=== PATIENT | female | born 1995 | race Caucasian/White ===

== ENCOUNTER 2022-07-14 17:37 | Outpatient (CLI) | payer BC, SELFPAY ==
[2022-07-16 09:45] LABS: HIV-1/2 Ag & Ab Screen Negative (Negative)
[2022-07-18 10:14] LABS: HBs Antibody, Qual Negative (See Note); HBs Antibody, Quant 4.2 mIU/mL (See Note); Hepatitis B Core Antibody Negative (Negative); Hepatitis B surface Ag Negative (Negative); Hepatitis C Ab w Rflx HCV PCR Negative (Negative)
[2022-07-18 10:48] LABS: Syphilis Serology (RPR) Negative (Negative)
== END 2022-07-14 17:38 | disposition home or self-care (01) ==
LOC: LBO 17:37
PROVIDERS: Visit Provider Obstetrics & Gynecology
DX: Z11.3 Encounter for screening for infections with a predominantly sexual mode of transmission (principal); Z11.59 Encounter for screening for other viral diseases; Z11.4 Encounter for screening for human immunodeficiency virus [HIV]
CPT/HCPCS: 36415; 86704; 86706; 86803; 87340; 87389; 86592

== ENCOUNTER 2023-04-08 16:48 | Outpatient (REF) | payer BC, SELFPAY ==
[2023-04-08 16:57] LABS: Source Nasal/Nares
[2023-04-08 17:47] LABS: COVID-19 PCR Negative (Negative)
== END 2023-04-08 16:49 | disposition home or self-care (01) ==
LOC: LBN 16:48
PROVIDERS: Visit Provider Physician Assistant Medical
DX: J02.9 Acute pharyngitis, unspecified (principal); Z20.822 Contact with and (suspected) exposure to COVID-19
CPT/HCPCS: 87635; 87070

== ENCOUNTER 2024-01-22 16:21 | Outpatient (REF) | payer BC, SELFPAY ==
--- NOTE | 2024-01-22 16:30 | PAPFT_PTH ---
PATIENT: Adelita Guillen LOC: [facility] U#:[id number] AGE/SX: 28/F ROOM: RE01/22/[address]: Destini Farooq MD : [id number] BED: DIS: 01/22/2024 SPEC #: [id number] RECD: 01/22/24 17:30 STATUS: MATTI REQ #: [id number] HADLEY: 01/22/24 16:[address]: Destini Farooq DEPT: [facility] Cytology RECD BY: Socorro Green ENTERED: 01/22/24 17:30 SP TYPE: PAPFT OTHR DR: Unknown,Unknown Tissues: 1 - CX/ENDOCX FOR PAP SMEARS Procedures: PAP THIN PREP/UVM Screening HPV DNA PROBE Comments: [id number] (HPV 16 & 18/45) (CHLAMYDIA/GC)
[2024-01-23 12:18] LABS: Chlamydia Result Negative (Negative); GC Result Negative (Negative)
== END 2024-01-22 16:22 | disposition home or self-care (01) ==
LOC: LBN 16:21
PROVIDERS: Visit Provider Obstetrics & Gynecology
DX: Z11.51 Encounter for screening for human papillomavirus (HPV) (principal); Z01.419 Encounter for gynecological examination (general) (routine) without abnormal findings
CPT/HCPCS: 87491; 87591; 88142; 87624

== ENCOUNTER 2024-07-28 03:02 | Emergency (ER) | payer BC, SELFPAY ==
[2024-07-28 03:08] VITALS: BP 140/64; PULSE 62; RESP 18; TEMP 36.3; O2SAT 98
[2024-07-28] MEDS: Lactated Ringers 1,000 ML 1000 ML IV (03:33)
[2024-07-28] MEDS: Ondansetron 4 MG/2 ML VIAL IVP (03:34)
[2024-07-28] MEDS: Metoclopramide 10 MG/2 ML VIAL IVP (03:34)
[2024-07-28 03:37] LABS: Abs Immature Grans 0.14 10^3/uL (0.0-0.06); Absolute Basophil Count 0.06 10^3/uL (0.0-0.2); Absolute Monocyte Count 1.33 10^3/uL (0.1-0.8); Basophils % 0.3 %; Eosinophils % 0.1 %; HCT 39.8 % (36.0-46.0); HGB 13.3 g/dL (11.2-15.7); Immature Grans % 0.7 %; Lymphocytes % 7.7 %; MCH 27.6 pg (27.0-33.0); MCHC 33.4 % (32.0-36.0); MCV 83 fL (80-95); MPV 9.7 fL (8.0-11.0); Monocytes % 6.9 %; Neutrophils % 84.3 %; Platelet Count 328 10^3/uL (130-400); RBC 4.82 10^6/uL (3.93-5.22); RDW 12.2 % (11.7-14.6); RDW-SD 37.1 fL; WBC 19.23 10^3/uL (4.4-10.8)
[2024-07-28 03:38] LABS: Absolute Eosinophil Count 0.02 10^3/uL (0.0-0.7); Absolute Lymphocyte Count 1.48 10^3/uL (1.2-3.4); Absolute Neutrophil Count 16.21 10^3/uL (1.2-6.7)
[2024-07-28 03:51] LABS: ALT 21 U/L (14-59); AST 20 U/L (15-37); Albumin 3.6 g/dL (3.4-5.0); Alkaline Phosphatase 109 U/L (46-116); Anion Gap 7.2 mmol/L (3-11); BUN 12 mg/dL (7-18); Bilirubin, Total 0.9 mg/dL (0.2-1.0); CO2 28.8 mmol/L (21.0-32.0); Calcium 9.3 mg/dL (8.5-10.1); Chloride 101 mmol/L (98-107); Estimated GFR 78.21 (mL/min/1.73m2); Glucose 162 mg/dL (74-106); Lipase 24 U/L (<78); Potassium 3.7 mmol/L (3.5-5.1); Sodium 137 mmol/L (136-145); Total Protein 7.8 g/dL (6.4-8.2)
[2024-07-28] MEDS: Normal Saline 1,000 ML 1000 ML IV (04:55)
[2024-07-28 04:56] VITALS: BP 112/52; PULSE 42; RESP 16; O2SAT 100
--- NOTE | 2024-07-28 05:03 | W.ED.GENAD ---
Discharge Plan Disposition Patient Disposition: Home Condition: Good Discharge Details Clinical Impression: Nausea & vomiting, Dehydration Primary Care Provider: Unknown,Unknown ED Provider: Win Mo Home Meds and New Rx's Prescriptions: No Action lisdexamfetamine 30 mg capsule 30 mg PO DAILY Patient Comments: 01/22/24- pt reports taking 30 mg and 20 mg together in am. lisdexamfetamine 20 mg capsule 20 mg PO DAILY Patient Comments: 01/22/24- pt reports takes 20 mg and 30 mg capsule together in am. bupropion HCl 150 mg tablet extended release 24 hr 150 mg PO BID paroxetine HCl 40 mg tablet 40 mg PO DAILY magnesium 250 mg tablet 250 mg PO DAILY Digestive Advantage Advanced 10 billion cell capsule PO omega-3 fatty acids 1,000 mg capsule 1,000 mg PO DAILY Patient Comments: 07/14/22- pt unsure of dose Mirena 21 mcg/24 hours (8 yrs) 52 mg intrauterine device 1 device intrauterine ONCE Rx Instructions: as a single dose buspirone 5 mg tablet 15 mg PO DAILY hydroxyzine HCl 25 mg tablet 25 mg PO BID Discharge Instructions Instructions: Dehydration, Adult (DC), Nausea and Vomiting, Adult ED Additional Instructions: At this time you were notably dehydrated, secondary to your vomiting. The vomiting may have come about from chronic marijuana use, a virus, or something that you ate. Please take the Zofran as needed if your nausea returns. Drink plenty of fluids and stay well-hydrated. Stick with a mild bland diet for the next 24 to 48 hours of rice, applesauce, toast or bananas. If you notice any worsening of your symptoms, or any new symptoms such as vomiting, diarrhea, fever, chills, shortness of breath, chest pain, numbness, weakness, or fainting , please return immediately to the emergency department for reevaluation. Please follow up with your primary care provider as soon as possible for reassessment and reevaluation. As always, it was a pleasure participating in your medical care today. HPI General Date/Time Provider Initiated Documentation: 07/28/24 03:10. HPI Narrative: 29-year-old female with a past medical history of anxiety, depression, migraines, daily marijuana use, presents today for evaluation of nausea and vomiting. Patient states that over the last few days she has had mild sinus and facial pressure, has had a very very mild headache, and has been treating this with Afrin and nasal sprays per her recent urgent care visit. However seemingly separate from this at around 6 PM she had sudden onset of notable nausea and subsequent vomiting. She has vomited 20-30 times since then. She admits to mild abdominal achiness in a generalized fashion, she denies any hematemesis or diarrhea. She denies any other sick contacts at home. She denies any changes in her marijuana use. She denies any other complaints at this time. No prior abdominal surgeries. No other complaints. Related Data Home Medications ?Medication ?Instructions ?Recorded ?Confirmed L.acidoph,paracasei,B.animalis 10 cell PO 07/14/22 01/22/24 billion cell capsule (Digestive Advantage Advanced Probiotic) bupropion HCl 150 mg 24 hr tablet, 150 mg PO BID 07/14/22 07/28/24 extended release levonorgestrel 21 mcg/24 hr (up to 1 device intrauterine ONCE 07/14/22 07/28/24 8 years) 52 mg intrauterine device (Mirena) magnesium 250 mg tablet 250 mg PO DAILY 07/14/22 07/28/24 omega-3 fatty acids 1,000 mg 1,000 mg PO DAILY 07/14/22 07/28/24 capsule paroxetine HCl 40 mg tablet 40 mg PO DAILY 07/14/22 07/28/24 buspirone 5 mg tablet 15 mg PO DAILY 01/22/24 07/28/24 hydroxyzine HCl 25 mg tablet 25 mg PO BID 01/22/24 07/28/24 lisdexamfetamine 20 mg capsule 20 mg PO DAILY 01/22/24 07/28/24 lisdexamfetamine 30 mg capsule 30 mg PO DAILY 01/22/24 07/28/24 Allergies Allergy/AdvReac Type Severity Reaction Status Date / Time No Known Allergies Allergy Verified 07/28/24 03:17 General Stated Complaint: Nausea/Vomit/Diar MP: 3 Exam Narrative Exam Narrative: 1.Const: Well-nourished, Well-developed, appearing stated age 2.Eyes: PERRL, no conjunctival injection, and symmetrical lids. 3.ENT: Atraumatic external nose and ears. Notably dry MM. Neck: Symmetric, trachea midline, No thyromegaly. 4.CVS: +S1/S2, Peripheral pulses 2+ and equal in all extremities. Brisk capillary refill in all extremities. 5.RESP: Unlabored respiratory effort. Clear to auscultation bilaterally. No wheezes rales or rhonchi 6.GI: Soft, Nontender/Nondistended, No hepatosplenomegaly. No guarding or rebound. No pain at McBurney's point, negative Arcos sign. 7.MSK: Normocephalic/Atraumatic, Extremities w/o deformity or ttp No cyanosis or clubbing, Normal movement of all extremities 8.Skin: Warm, Dry. No rashes or lesions. 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 Sensation grossly intact, no focal neurologic deficits. 10.Psych: (AAO) x3. Appropriate mood and affect Course Vital Signs Vital signs: Vital Signs Temperature 36.3 C L 07/28/24 03:08 Pulse 62 07/28/24 03:08 Respiratory Rate 18 07/28/24 03:08 Blood Pressure 140/64 07/28/24 03:08 Pulse Oximetry 98 07/28/24 03:08 Temperature 36.3 C L 07/28/24 03:08 Temperature Source Oral 07/28/24 03:08 Pulse 42 L 07/28/24 04:56 Pulse Rhythm Regular 07/28/24 04:56 Respiratory Rate 16 07/28/24 04:56 Respiratory Effort Normal 07/28/24 04:56 Respiratory Depth Normal 07/28/24 04:56 Blood Pressure 112/52 L 07/28/24 04:56 Blood Pressure Mean 72 07/28/24 04:56 Pulse Oximetry 100 07/28/24 04:56 Oxygen Delivery Method Room Air 07/28/24 03:08 Oxygen Flow Rate 0 07/28/24 03:08 Pain Level 0 07/28/24 03:08 Lab/Test Results Lab/Test Results: Laboratory Tests Range/Units 07/28/24 03:26 WBC (4.4-10.8) 10^3/uL 19.23 H RBC (3.93-5.22) 10^6/uL 4.82 Hgb (11.2-15.7) g/dL 13.3 Hct (36.0-46.0) % 39.8 MCV (80-95) fL 83 MCH (27.0-33.0) pg 27.6 MCHC (32.0-36.0) % 33.4 RDW (11.7-14.6) % 12.2 Plt Count (130-400) 10^3/uL 328 MPV (8.0-11.0) fL 9.7 Immature Gran % % 0.7 Neutrophils % % 84.3 Lymphocytes % % 7.7 Monocytes % % 6.9 Eosinophils % % 0.1 Basophils % % 0.3 Nucleated RBC % (0.0-0.3) % 0.0 Absolute Neutrophils (1.2-6.7) 10^3/uL 16.21 H Absolute Lymphocytes (1.2-3.4) 10^3/uL 1.48 Absolute Monocytes (0.1-0.8) 10^3/uL 1.33 H Absolute Eosinophils (0.0-0.7) 10^3/uL 0.02 Absolute Basophils (0.0-0.2) 10^3/uL 0.06 Sodium (136-145) mmol/L 137 Potassium (3.5-5.1) mmol/L 3.7 Chloride (98-107) mmol/L 101 Carbon Dioxide (21.0-32.0) mmol/L 28.8 Anion Gap (3-11) mmol/L 7.2 BUN (7-18) mg/dL 12 Creatinine (0.55-1.02) mg/dL 1.0 Est GFR (CKD-EPI 2020) (mL/min/1.73m2) 78.21 Glucose (74-106) mg/dL 162 H Calcium (8.5-10.1) mg/dL 9.3 Total Bilirubin (0.2-1.0) mg/dL 0.9 AST (15-37) U/L 20 ALT (14-59) U/L 21 Alkaline Phosphatase (46-116) U/L 109 Total Protein (6.4-8.2) g/dL 7.8 Albumin (3.4-5.0) g/dL 3.6 Lipase (<78) U/L 24 POC- Test(urine) Negative Medical Decision Making 29-year-old female with a past medical history of anxiety, depression, migraines, daily marijuana use, presents today for evaluation of nausea and vomiting. Patient states that over the last few days she has had mild sinus and facial pressure, has had a very very mild headache, and has been treating this with Afrin and nasal sprays per her recent urgent care visit. However seemingly separate from this at around 6 PM she had sudden onset of notable nausea and subsequent vomiting. She has vomited 20-30 times since then. She admits to mild abdominal achiness in a generalized fashion, she denies any hematemesis or diarrhea. She denies any other sick contacts at home. She denies any changes in her marijuana use. She denies any other complaints at this time. No prior abdominal surgeries. No other complaints. Exam demonstrates an actively nauseous and vomiting patient, no guarding or rebound for the abdomen, no focal tenderness. No pain at McBurney's point, negative Arcos sign. Symptoms inconsistent with appendicitis or acute cholecystitis. Differential includes gastroenteritis, she does admit to eating a burger earlier today which may have brought about her symptoms. Symptoms also include cyclic vomiting syndrome. Patient appears notably dehydrated will rehydrate/volume resuscitate with IV fluid bolus, give antiemetics of Zofran and Reglan. Will monitor closely and reassess. Symptoms appear inconsistent with DKA, blood sugar is in the 160s. 5 AM Patient has received a liter of fluid, she is now tolerating p.o. well, she has no more vomiting, she feels well and significantly improved. She feels comfortable going home. Pending urinalysis at this time. Lipase is normal, electrolytes are normal, transaminases are normal. Patient does have an elevated white count at 19, suspect this is reactive from the vomiting. She has no fever or tachycardia to suggest sepsis or infection otherwise. Will continue to monitor and hydrate with a second liter. 5:30 AM Patient continues to do well, she has tolerated p.o. trial well. Vital signs stable. Patient feels well and feels comfortable going home. Nausea and vomiting have resolved. Will give a small to go bottle of Zofran for home use. Suspect cyclic vomiting syndrome versus gastroenteritis. She is now well-hydrated, and shows no signs of life-threatening etiology. Patient will be discharged home. Discussed red flags for which to return. I have extensively reviewed the treatment plan and discharge instructions with the patient. I have addressed all patient concerns at this time. The patient was made aware of what symptoms to monitor for that would warrant a return to the emergency department. Discussed the plan with the patient, they demonstrate verbal understanding and agreement with our assessment and plan at this time. The documentation in this chart was dictated using [employer] dictation software. Please excuse any dictation errors. Quality:SDOH Health Related Social Needs: No Data to Display Critical Care Time Critical Care Time Critical Care Time: Yes Total Critical Care Time: 30 Attestation: Upon my evaluation, this patient had a high probability of imminent or life-threatening deterioration, which required my direct attention, intervention, and personal management. I have personally provided 30 minutes of critical care time exclusive of time spent on separately billable procedures. Time includes review of laboratory data, radiology results, discussion with consultants, and monitoring for potential decompensation. Interventions were performed as documented. PFSH All Active Problems (Updated 07/28/24 @ 05:31 by Win Mo DO) Dehydration (Acute) Nausea & vomiting (Acute) Medical History (Updated 07/28/24 @ 05:31 by Win Mo DO) Anxiety Depression Migraines Surgical History (Updated 07/14/22 @ 15:27 by Kari Casper RN) History of third molar tooth extraction Hx of tonsillectomy Family History (Updated 07/14/22 @ 15:28 by Kari Casper RN) Other Hyperlipidemia Hypertension Stroke Social History (Updated 07/14/22 @ 15:44 by Destini Farooq MD) Smoking/Tobacco Use Status: Never Smoking risk assessment performed?: Yes Alcohol Intake: never Drug use: Daily Substance use type: marijuana Household members: friend(s) Do you think of yourself as: bisexual
[2024-07-28 05:06] LABS: Bilirubin Negative (Negative); Blood Small (Negative); Clarity Clear (Clear); Glucose Negative (Negative); Ketones 15 mg/dL (Negative); Leukocyte Esterase Negative (Negative); Nitrite Negative (Negative); Specific Gravity 1.015 (1.005-1.025); Urobilinogen 0.2 mg/dL (Up to 0.2)
[2024-07-28 05:11] LABS: Bacteria Few HPF (Negative); C & S Indicated? No; Casts Negative LPF (Negative); Crystals Negative HPF (Negative); Epithelial Cells Moderate HPF (Negative); Mucus Negative (Negative); WBC 0-2 HPF (0-5)
[2024-07-28 05:44] VITALS: BP 121/51; PULSE 49; RESP 12; TEMP 35.9; O2SAT 98
[2024-07-28] MEDS: Ondansetron O.D.T. 4 MG TABEF, 3 TABS/BTL PO (05:46)
== END 2024-07-28 05:54 | disposition home or self-care (01) ==
PROVIDERS: Emergency Provider Student in an Organized Health Care Education/Training Program
DX: R11.2 Nausea with vomiting, unspecified (principal); E86.0 Dehydration
CPT/HCPCS: 80053; 81025; 83690; 96361; 96374; 96375; 99284; 81003; 81015; 85025; J2405; J2765

== ENCOUNTER 2024-08-09 14:48 | Outpatient (REF) | payer BC, SELFPAY | END 2024-08-09 14:49 | disposition home or self-care (01) | LOC: LBN 14:48 | PROVIDERS: Visit Provider Nurse Practitioner Family | DX: N76.0 Acute vaginitis (principal); B37.9 Candidiasis, unspecified | CPT/HCPCS: 87480; 87510; 87660 ==

== ENCOUNTER 2024-09-11 13:58 | Outpatient (REF) | payer BC, SELFPAY | END 2024-09-11 13:59 | disposition home or self-care (01) | LOC: LBN 13:58 | PROVIDERS: Visit Provider Physician Assistant Medical | DX: R39.15 Urgency of urination (principal) | CPT/HCPCS: 87077; 87086; 87186 ==

== ENCOUNTER 2024-12-02 16:20 | Outpatient (REF) | payer BC, SELFPAY ==
[2024-12-02 17:03] LABS: Glucose Negative (Negative)
[2024-12-02 17:19] LABS: C & S Indicated? Yes
== END 2024-12-02 16:21 | disposition home or self-care (01) ==
LOC: LBN 16:20
PROVIDERS: Visit Provider Nurse Practitioner Family
DX: R39.9 Unspecified symptoms and signs involving the genitourinary system (principal)
CPT/HCPCS: 87077; 81003; 81015; 87086; 87186

== ENCOUNTER 2024-12-03 22:03 | Emergency (ER) | payer BC, SELFPAY ==
[2024-12-03 22:06] VITALS: BP 148/61; PULSE 51; RESP 16; O2SAT 100
[2024-12-03 22:12] VITALS: BP 148/61; PULSE 51; RESP 16; O2SAT 100
[2024-12-03] MEDS: Normal Saline 1,000 ML 1000 ML IV ×2 (22:25→23:44)
[2024-12-03 23:22] LABS: Abs Immature Grans 0.10 10^3/uL (0.0-0.06); HCT 39.5 % (36.0-46.0); HGB 12.5 g/dL (11.2-15.7); Immature Grans % 0.6 %; MCH 25.3 pg (27.0-33.0); MCHC 31.6 % (32.0-36.0); MCV 80 fL (80-95); MPV 9.6 fL (8.0-11.0); Platelet Count 365 10^3/uL (130-400); RBC 4.94 10^6/uL (3.93-5.22); RDW 15.2 % (11.7-14.6); RDW-SD 43.8 fL; WBC 16.31 10^3/uL (4.4-10.8)
[2024-12-03 23:34] LABS: Lipase 199 U/L (<78)
[2024-12-03 23:39] LABS: ALT 18 U/L (14-59); AST 17 U/L (15-37); Albumin 3.6 g/dL (3.4-5.0); Alkaline Phosphatase 105 U/L (46-116); Anion Gap 9.3 mmol/L (3-11); BUN 10 mg/dL (7-18); Bilirubin, Total 0.5 mg/dL (0.2-1.0); CO2 27.7 mmol/L (21.0-32.0); Calcium 8.7 mg/dL (8.5-10.1); Chloride 103 mmol/L (98-107); Estimated GFR 88.75 (mL/min/1.73m2); Glucose 108 mg/dL (74-106); Magnesium 1.7 mg/dL (1.8-2.4); Potassium 3.1 mmol/L (3.5-5.1); Sodium 140 mmol/L (136-145); Total Protein 8.0 g/dL (6.4-8.2)
[2024-12-03] MEDS: Droperidol 5 MG/2 ML VIAL 1.25 MG IVP (23:44)
--- NOTE | 2024-12-03 23:50 | W.ED.GENAD ---
Discharge Plan Disposition Patient Disposition: Home Condition: Improving Discharge Details Clinical Impression: Nausea and vomiting, Adverse drug reaction Primary Care Provider: Unknown,Unknown ED Provider: Brennen Brown Home Meds and New Rx's Prescriptions: New ondansetron 4 mg tablet,disintegrating 4 mg PO Q8H PRN (Reason: nausea and vomiting) Qty: 14 0RF No Action lisdexamfetamine 30 mg capsule 30 mg PO DAILY Patient Comments: 01/22/24- pt reports taking 30 mg and 20 mg together in am. lisdexamfetamine 20 mg capsule 20 mg PO DAILY Patient Comments: 01/22/24- pt reports takes 20 mg and 30 mg capsule together in am. bupropion HCl 150 mg tablet extended release 24 hr 150 mg PO BID paroxetine HCl 40 mg tablet 40 mg PO DAILY magnesium 250 mg tablet 250 mg PO DAILY Digestive Advantage Advanced 10 billion cell capsule See Rx Instructions PO DAILY Rx Instructions: 1 capsule by mouth daily; omega-3 fatty acids 1,000 mg capsule 1,000 mg PO DAILY Patient Comments: 07/14/22- pt unsure of dose Mirena 21 mcg/24 hours (8 yrs) 52 mg intrauterine device 1 device intrauterine ONCE Rx Instructions: as a single dose buspirone 5 mg tablet 15 mg PO DAILY hydroxyzine HCl 25 mg tablet 25 mg PO DAILY PRN fluconazole 150 mg tablet 150 mg PO ONCE Qty: 2 0RF Rx Instructions: Administer 1 tab once. If symptoms persist may repeat in 3 days doxycycline hyclate 100 mg tablet,delayed release (DR/EC) 100 mg PO DAILY nitrofurantoin monohyd/m-cryst [Macrobid] 100 mg capsule 100 mg PO Q12H 5 Days Qty: 10 0RF Rx Instructions: must administer with a meal/food. Take 1 pill every 12 hours x 5 days phenazopyridine [Pyridium] 100 mg tablet 100 mg PO TID PRN (Reason: pain) Qty: 6 0RF metronidazole 500 mg tablet 500 mg PO Q12H Qty: 14 0RF Discharge Instructions Instructions: Adverse Drug Reactions, Adult ED, Cannabis hyperemesis syndrome Additional Instructions: It is not entirely clear if your nausea and vomiting is due to an exclusive drug reaction to the antibiotics you been taking, or if there is also some contribution related to cannabis hyperemesis syndrome. In the short-term, I would recommend discontinuing the use of daily cannabis until you are feeling better. Also, your urine is equivocal for urinary tract infection, and I would recommend discontinuing the use of both oral antibiotics at this time unless you have any ongoing symptoms. I would certainly discontinue the use of the oral doxycycline and talk to your deputy city clerk about alternative treatments for your acne. You might consider using topical metronidazole gel or topical ivermectin cream to see if this helps improve your symptoms. You can take 1 Zofran ODT tablet every 8 hours as needed for ongoing symptoms of nausea and vomiting. This medication will dissolve under your tongue and does not necessarily be swallowed to be effective. If you continue to have symptoms of nausea and vomiting, you might consider contacting your primary care doctor and switching antinausea medications to Compazine suppositories. Compazine is similar to droperidol and is somewhat more effective at cannabis hyperemesis syndrome. Also suppositories do not require you to be able to swallow them to get the antinausea effect. Begin your diet back slowly. Start with clear liquids over the next 12 to 24 hours. You should drink things other than just water, that contain either dissolve sugar or dissolve electrolytes in them like fruit juices, Gatorade, or teas. If these are tolerated you can begin reintroducing a diet with things that are easy to digest such as crackers, broth based soups, toast, rice, apples, and bananas. If you tolerate this for 12 to 24 hours you can begin a more normal diet again. You can always return to the ER for any new concerns or sudden changes in your health which you feel require emergency medical attention. HPI General Date/Time Provider Initiated Documentation: 12/03/24 22:06. HPI Narrative: The patient is a 29-year-old female, with a past medical history significant for recent use of oral doxycycline for topical acne, as well as recent treatment with oral Macrobid for urinary tract symptoms yesterday through an urgent care, who presents to the emergency department this evening complaining of intractable nausea and vomiting for the last 10 to 12 hours. The patient states that she began having nausea almost immediately after starting to take the oral doxycycline for her topical acne treatment. She was concerned because she was unable to hold down liquids or her regular medications with the vomiting and dry heaving that she been having today. The patient also reports that she had been seen approximately 4 months ago for a similar episode of nausea and vomiting, and was told at that time that she might have a cannabis induced hyperemesis syndrome. The patient tells me that she does utilize cannabis at least once a day, either smoking or taking an edible. The patient denies any associated diarrhea. She reports that her urinary symptoms have essentially resolved at this point in time. The patient denies having any vaginal discharge or yeast infection yet. Related Data Home Medications ?Medication ?Instructions ?Recorded ?Confirmed L.acidoph,paracasei,B.animalis 10 See Rx Instructions PO DAILY 07/14/22 12/04/24 billion cell capsule (Digestive Advantage Advanced Probiotic) bupropion HCl 150 mg 24 hr tablet, 150 mg PO BID 07/14/22 12/03/24 extended release levonorgestrel (Mirena) 1 device intrauterine ONCE 07/14/22 12/03/24 magnesium 250 mg tablet 250 mg PO DAILY 07/14/22 12/03/24 omega-3 fatty acids 1,000 mg 1,000 mg PO DAILY 07/14/22 12/03/24 capsule paroxetine HCl 40 mg tablet 40 mg PO DAILY 07/14/22 12/03/24 buspirone 5 mg tablet 15 mg PO DAILY 01/22/24 12/03/24 hydroxyzine HCl 25 mg tablet 25 mg PO DAILY PRN 01/22/24 12/03/24 lisdexamfetamine 20 mg capsule 20 mg PO DAILY 01/22/24 12/03/24 lisdexamfetamine 30 mg capsule 30 mg PO DAILY 01/22/24 12/03/24 fluconazole 150 mg tablet 150 mg PO ONCE #2 tabs 08/09/24 12/03/24 metronidazole 500 mg tablet 500 mg PO Q12H #14 tabs 08/09/24 12/03/24 doxycycline hyclate 100 mg 100 mg PO DAILY 12/02/24 12/03/24 tablet,delayed release nitrofurantoin 100 mg PO Q12H 5 days #10 caps 12/02/24 12/03/24 monohydrate/macrocrystals 100 mg capsule (Macrobid) phenazopyridine 100 mg tablet 100 mg PO TID PRN pain 6 doses #6 12/02/24 12/03/24 (Pyridium) tabs ondansetron 4 mg disintegrating 4 mg PO Q8H PRN nausea and 12/04/24 tablet vomiting #14 tabs Previous Rx's ?Medication ?Instructions ?Recorded fluconazole 150 mg tablet 150 mg PO ONCE #2 tabs 08/09/24 metronidazole 500 mg tablet 500 mg PO Q12H #14 tabs 08/09/24 nitrofurantoin 100 mg PO Q12H 5 days #10 caps 12/02/24 monohydrate/macrocrystals 100 mg capsule (Macrobid) phenazopyridine 100 mg tablet 100 mg PO TID PRN pain 6 doses #6 12/02/24 (Pyridium) tabs ondansetron 4 mg disintegrating 4 mg PO Q8H PRN nausea and 12/04/24 tablet vomiting #14 tabs Allergies Allergy/AdvReac Type Severity Reaction Status Date / Time No Known Allergies Allergy Verified 12/03/24 22:12 General Stated Complaint: Nausea/Vomit/Diar MP: 3 Exam Const General: cooperative, healthy appearing, comfortable and no acute distress Resp Effort & Inspection: normal respiratory effort Auscultation: clear to auscultation bilaterally Cardio Rate: regular rate Rhythm: regular rhythm and abnormal rhythm GI Inspection: normal to inspection Palpation: soft Auscultation: normal bowel sounds Skin General skin exam: elasticity normal and turgor normal Lesions: other (Acneiform lesions on the face and upper extremities to a lesser extent) Trauma: no lacerations or abrasions Neuro General: patient alert, patient awake, patient oriented x3, moves all extremities and CN's II-XI intact bilaterally Course The patient reports resolution of her nausea and vomiting at this time. The patient is awake and alert and tolerated a p.o. challenge with oral david bernadine. I have recommended the patient discontinue the use of oral antibiotics at this point in time as there is relatively limited reason I think that she has an ongoing urinary tract infection predicated on her urine results from yesterday, and the resolution of her symptoms. The patient likely also has some contribution from cannabis hyperemesis, especially given that the droperidol was somewhat more effective for her than the Zofran. The patient be discharged home with instructions to reintroduce her diet slowly. I will provide some additional Zofran ODT as a prescription for home use if needed. Vital Signs Vital signs: Vital Signs Pulse 51 L 12/03/24 22:06 Respiratory Rate 16 12/03/24 22:06 Blood Pressure 148/61 H 12/03/24 22:06 Pulse Oximetry 100 12/03/24 22:06 Pulse 51 L 12/03/24 22:12 Respiratory Rate 16 12/03/24 22:12 Blood Pressure 148/61 H 12/03/24 22:12 Blood Pressure Position Sitting 12/03/24 22:12 Pulse Oximetry 100 12/03/24 22:12 Oxygen Delivery Method Room Air 12/03/24 22:12 Oxygen Flow Rate 0 12/03/24 22:12 Pain Level 8 12/03/24 22:12 Lab/Test Results Lab/Test Results: Laboratory Tests Range/Units 12/03/24 22:25 WBC (4.4-10.8) 10^3/uL 16.31 H RBC (3.93-5.22) 10^6/uL 4.94 Hgb (11.2-15.7) g/dL 12.5 Hct (36.0-46.0) % 39.5 MCV (80-95) fL 80 MCH (27.0-33.0) pg 25.3 L MCHC (32.0-36.0) % 31.6 L RDW (11.7-14.6) % 15.2 H Plt Count (130-400) 10^3/uL 365 MPV (8.0-11.0) fL 9.6 Immature Gran % % 0.6 Neutrophils % % 78.2 Lymphocytes % % 11.4 Monocytes % % 7.7 Eosinophils % % 1.8 Basophils % % 0.3 Nucleated RBC % (0.0-0.3) % 0.0 Absolute Neutrophils (1.2-6.7) 10^3/uL 12.75 H Absolute Lymphocytes (1.2-3.4) 10^3/uL 1.86 Absolute Monocytes (0.1-0.8) 10^3/uL 1.26 H Absolute Eosinophils (0.0-0.7) 10^3/uL 0.29 Absolute Basophils (0.0-0.2) 10^3/uL 0.05 Sodium (136-145) mmol/L 140 Potassium (3.5-5.1) mmol/L 3.1 L Chloride (98-107) mmol/L 103 Carbon Dioxide (21.0-32.0) mmol/L 27.7 Anion Gap (3-11) mmol/L 9.3 BUN (7-18) mg/dL 10 Creatinine (0.55-1.02) mg/dL 0.9 Est GFR (CKD-EPI 2020) (mL/min/1.73m2) 88.75 Glucose (74-106) mg/dL 108 H Calcium (8.5-10.1) mg/dL 8.7 Magnesium (1.8-2.4) mg/dL 1.7 L Total Bilirubin (0.2-1.0) mg/dL 0.5 AST (15-37) U/L 17 ALT (14-59) U/L 18 Alkaline Phosphatase (46-116) U/L 105 Total Protein (6.4-8.2) g/dL 8.0 Albumin (3.4-5.0) g/dL 3.6 Lipase (<78) U/L 199 H Medical Decision Making The patient was seen and examined. She is in no distress and has essentially normal vital signs here in the emergency room. The patient reports that she still has some nausea with some intermittent dry heaving after having a dose of IV Zofran and a liter of normal saline here in the emergency room. The patient will have a second liter of normal saline and will be given some IV droperidol to see if this is helpful for her symptoms. If she does have a cannabis induced hyperemesis syndrome, droperidol would likely be more helpful in reducing her discomfort and vomiting then the IV Zofran. The patient does have a mildly elevated lipase level, and this could be the result of taking the oral doxycycline. Also the patient could have vomiting simply related to the doxycycline itself. The patient's urine from yesterday was essentially negative for any acute findings. I recommend that she discontinue the use of the oral antibiotics at this time, and she could potentially be discharged home with some oral nausea medications and light diet starting with clear liquids for a few days to see if she improves her symptoms without any additional management. PFSH All Active Problems (Updated 12/04/24 @ 01:51 by Brennen Brown MD) Adverse drug reaction (Acute) Nausea and vomiting (Acute) Medical History Anxiety Depression Migraines Surgical History History of third molar tooth extraction Hx of tonsillectomy Family History Other Hyperlipidemia Hypertension Stroke Social History Smoking/Tobacco Use Status: Never Smoking risk assessment performed?: Yes Alcohol Intake: current Alcohol Intake frequency: holidays/special occasions only Drug use: Daily Substance use type: marijuana Household members: friend(s) Housing: house Do you think of yourself as: bisexual Do you feel safe at home: Yes Do you feel safe in your relationship?: Yes
[2024-12-03 23:58] LABS: Glucose 100 mg/dL (Negative)
[2024-12-04] VITALS (9 sets, daily range): BP systolic 106–142; BP diastolic 49–74; PULSE 45–84; RESP 16–18; TEMP 37; O2SAT 90–99
[2024-12-04] MEDS: Ondansetron 4 MG/2 ML VIAL (00:05)
[2024-12-04 00:11] LABS: C & S Indicated? No
== END 2024-12-04 02:02 | disposition home or self-care (01) ==
PROVIDERS: Emergency Provider Emergency Medicine Emergency Medical Services
DX: R11.2 Nausea with vomiting, unspecified (principal); T50.905A Adverse effect of unspecified drugs, medicaments and biological substances, initial encounter
CPT/HCPCS: 99284 ×2; 81025; 36415; 96374; 96375; 80053; 83690; 96361; 81003; 81015; 83735; 85025; J1790; J2405

== ENCOUNTER 2025-02-03 18:51 | Outpatient (REF) | payer BC, SELFPAY ==
[2025-02-05 12:14] LABS: Chlamydia Result Negative (Negative); GC Result Negative (Negative)
== END 2025-02-03 18:52 | disposition home or self-care (01) ==
LOC: LBN 18:51
PROVIDERS: Visit Provider Obstetrics & Gynecology
DX: R30.0 Dysuria (principal); N94.9 Unspecified condition associated with female genital organs and menstrual cycle
CPT/HCPCS: 87491; 87591; 87086; 87480; 87510; 87660